=== PATIENT | male | born 1970 | race Caucasian/White ===

== ENCOUNTER 2020-05-07 11:01 | Outpatient (CLI) | payer BC ==
--- NOTE | 2020-05-07 13:28 | RAD ---
LEFT FOOT 3 VIEWS: Date: 05/07/2020 HISTORY: Foot pain x4 years. FINDINGS: There are mild arthritic changes of the first metatarsophalangeal joint. Calcaneal spur at the planta r fascia insertion is noted. Some mild osteophytic changes of the talonavicular joint are seen. IMPRESSION: Mild arthritic change of the foot. POS: OFF
== END 2020-05-07 11:02 | disposition home or self-care (01) ==
LOC: BICRAD 11:01
PROVIDERS: ATTEND Podiatrist
DX: M79.672 Pain in left foot (principal); M10.072 Idiopathic gout, left ankle and foot; M19.072 Primary osteoarthritis, left ankle and foot